=== PATIENT | female | born 1990 | race African-American/Black ===

== ENCOUNTER → 2017-04-24 | Outpatient (CLI) | payer OTHER ==
[~2017-04-24] MED LIST: AMARYL4 MG PO; AUGMENTIN875 MG PO; AVENTYL,PAMELOR25 MG PO; BENADRYL25 MG PO; CHERATUSSIN AC473 ML PO; IBUPROFEN50 MG/1.25 PO; LANTUS 3 M100 UNITS1 SC; LOSARTAN POTASS25 MG PO; NOHOMEMEDS; NORCO 5/3251 TABLET PO; PRAVACHOL10 MG PO; TRULICITY1.5 MG/0.5 SC; ULTRAM50 MG PO; ZOFRAN4 MG PO
== END | disposition home or self-care (01) ==
LOC: CDC 13:51
DX: Z01.810 Encounter for preprocedural cardiovascular examination (principal); R22.9 Localized swelling, mass and lump, unspecified
CPT/HCPCS: 93000

== ENCOUNTER 2017-04-28 11:03 | Day surgery (SDC) | payer OTHER ==
[~2017-04-28] VITALS: Ht 170.2 cm; Wt 125.6 kg
[~2017-04-28 11:03] MED LIST changes: -AVENTYL,PAMELOR25 MG PO; -IBUPROFEN50 MG/1.25 PO; -LANTUS 3 M100 UNITS1 SC; -PRAVACHOL10 MG PO; -TRULICITY1.5 MG/0.5 SC; -ULTRAM50 MG PO
[2017-04-28] MEDS ORDERED: AVENTYL,PAMELOR25 MG PO (11:23)
[2017-04-28] MEDS ORDERED: IBUPROFEN50 MG/1.25 PO (11:24)
[2017-04-28] MEDS ORDERED: PRAVACHOL10 MG PO (11:26)
[2017-04-28] MEDS ORDERED: TRULICITY1.5 MG/0.5 SC (11:28)
[2017-04-28] MEDS ORDERED: LANTUS 3 M100 UNITS1 SC (11:29)
[2017-04-28 11:32] VITALS: BP 154/96
[2017-04-28 11:43] VITALS: BP 154/96
[2017-04-28] MEDS ORDERED: ULTRAM50 MG PO (13:09)
[2017-04-28 16:00] VITALS: BP 170/100
[2017-04-28 16:45] VITALS: BP 145/99
== END 2017-04-28 16:55 | disposition home or self-care (01) ==
LOC: SDC 11:03
PROVIDERS: Surgery
PROC: 0JBP0ZZ Excision of Left Lower Leg Subcutaneous Tissue and Fascia, Open Approach (ICD-10-PCS; principal; 2017-04-28)
DX: R22.42 Localized swelling, mass and lump, left lower limb (principal); E11.9 Type 2 diabetes mellitus without complications; Z79.4 Long term (current) use of insulin
CPT/HCPCS: 82948; 88305; J0690; J1170; J2250; J2405; J2765; J3010